=== PATIENT | male | born 1965 | race Two or more races ===

== ENCOUNTER 2023-03-21 16:53 | Inpatient (IN) | payer OTHER ==
[~2023-03-21] VITALS: Ht 172.7 cm; Wt 74.8 kg
[2023-03-21] MEDS ORDERED: COZAAR100 MG PO (17:02)
[2023-03-21] MEDS ORDERED: NORVASC5 MG PO (17:02)
[2023-03-21] MEDS ORDERED: SYNTHROID125 MCG PO (17:02)
[2023-03-21] MEDS ORDERED: ASA81 MG PO (17:02)
[2023-03-21 18:02] LABS: HEMATOCRIT 40.8 % (39.0-48.0); HEMOGLOBIN 13.4 g/dL (13-16.00); MEAN CELL VOLUME 87.6 fL (80.0-100.00); MEAN CORPUSCULAR HEMOGLOBIN 28.8 pg (27.00-32.0); MEAN CORPUSCULAR HGB CONC 32.9 g/dl (32.0-36.0); PLATELET COUNT 231 K/uL (150-450); RED BLOOD COUNT 4.66 M/uL (4.00-6.00); RED CELL DISTRIBUTION WIDTH 14.8 % (11.5-14.5)
[2023-03-21 18:22] LABS: INR 0.98; PARTIAL THROMBOPLASTIN TIME 23.5 SECONDS (22.0-34.0); PROTHROMBIN TIME 10.3 SECONDS (9.0-11.5)
[2023-03-21 18:30] LABS: ALBUMIN 3.3 gm/dL (3.4-5.0); BILIRUBIN TOTAL 0.31 mg/dL (0.3-1.2); CALCIUM 8.9 mg/dL (8.5-10.1); CREATININE SERUM 0.79 mg/dL (0.70-1.30); GFR 100.05; GLOBULINA 3.4 G/DL (2.4-3.5); POTASSIUM 4.26 mEq/L (3.5-5.1); TOTAL PROTEIN 6.7 gm/dL (6.4-8.2)
[2023-03-21 18:35] LABS: C-REACTIVE PROTEIN 0.32 MG/DL (0.00-0.29)
[2023-03-22 00:49] LABS: PH,URINE 7.5 (5.0-8.0); URINE APPEARANCE Clear; URINE BILIRRUBIN Negative (NEGATIVE); URINE BLOOD Moderate; URINE COLOR Yellow; URINE GLUCOSE Negative (NEGATIVE); URINE LEUKOCYTE Negative; URINE NITRATE Negative; URINE PROTEIN Negative (NEGATIVE); URINE UROBILINOGEN 0.2 E.U./dl
[2023-03-22 00:52] LABS: URINE BACTERIA 26.4 uL (0.0-1933); URINE RBC 51.5 uL (0.0-20.8); URINE WBC 10.4 uL (0.0-23.2)
[2023-03-22 00:53] LABS: URINE EPITHELIAL CELLS 0.7 uL (0.0-38.8)
[2023-03-22 16:18] LABS: CALCIUM 8.2 mg/dL (8.5-10.1); CHOL HDL RATIO 3.2 (0-5.0); CREATININE SERUM 0.85 mg/dL (0.70-1.30); GFR 91.94; POTASSIUM 4.16 mEq/L (3.5-5.1)
[2023-03-27 07:02] LABS: HEMATOCRIT 32.7 % (39.0-48.0); HEMOGLOBIN 11.2 g/dL (13-16.00); MEAN CORPUSCULAR HEMOGLOBIN 29.4 pg (27.00-32.0); MEAN CORPUSCULAR HGB CONC 34.2 g/dl (32.0-36.0); PLATELET COUNT 209 K/uL (150-450); RED CELL DISTRIBUTION WIDTH 14.3 % (11.5-14.5)
[2023-03-27 07:29] LABS: INR 1.09; PARTIAL THROMBOPLASTIN TIME 27.8 SECONDS (22.0-34.0); PROTHROMBIN TIME 11.4 SECONDS (9.0-11.5)
[2023-03-27 07:40] LABS: ALBUMIN 2.1 gm/dL (3.4-5.0); BILIRUBIN TOTAL 0.44 mg/dL (0.3-1.2); BILIRUBIN,CONJUGATED 0.16 mg/dL (0.0-0.2); BILIRUBIN,UNCONJUGATED 0.28 mg/dL (0.0-0.6); CALCIUM 7.6 mg/dL (8.5-10.1); CREATININE SERUM 0.68 mg/dL (0.70-1.30); GFR 118.95; MAGNESIUM 1.7 mg/dL (1.8-2.4); POTASSIUM 3.68 mEq/L (3.5-5.1); TOTAL PROTEIN 5.1 gm/dL (6.4-8.2)
[2023-03-27 11:42] LABS: UREA CLEARANCE 15.8 ML/MIN
[2023-03-30 06:48] LABS: HEMOGLOBIN 11.4 g/dL (13-16.00); MEAN CELL VOLUME 83.1 fL (80.0-100.00); MEAN CORPUSCULAR HEMOGLOBIN 28.6 pg (27.00-32.0); MEAN CORPUSCULAR HGB CONC 34.4 g/dl (32.0-36.0); PLATELET COUNT 235 K/uL (150-450); RED BLOOD COUNT 3.98 M/uL (4.00-6.00); RED CELL DISTRIBUTION WIDTH 14.1 % (11.5-14.5)
[2023-03-30 07:18] LABS: ALBUMIN 2.2 gm/dL (3.4-5.0); BILIRUBIN TOTAL 0.38 mg/dL (0.3-1.2); CALCIUM 7.9 mg/dL (8.5-10.1); CREATININE SERUM 0.69 mg/dL (0.70-1.30); GFR 116.96; GLOBULINA 3.1 G/DL (2.4-3.5); MAGNESIUM 1.7 mg/dL (1.8-2.4); PHOSPHOROUS 2.7 mg/dL (2.5-4.9); POTASSIUM 3.6 mEq/L (3.5-5.1); TOTAL PROTEIN 5.3 gm/dL (6.4-8.2)
[2023-03-30] MEDS ORDERED: METRONIDAZOLE500 MG PO (18:17)
[2023-03-30] MEDS ORDERED: AMOX-CLAV 875-1 EAC1 PO (18:17)
== END 2023-03-30 19:14 | disposition home or self-care (01) | DRG 392 ==
LOC: ER 16:53 → SURG 23:59
PROVIDERS: General Practice; ADMIT Internal Medicine; ATTEND Internal Medicine
PROC: BW21ZZZ Computerized Tomography (CT Scan) of Abdomen and Pelvis (ICD-10-PCS; principal; 2023-03-21)
PROC: BW21ZZZ Computerized Tomography (CT Scan) of Abdomen and Pelvis (ICD-10-PCS; 2023-03-27)
DX: K57.92 Diverticulitis of intestine, part unspecified, without perforation or abscess without bleeding (principal); K59.09 Other constipation

== ENCOUNTER 2023-05-29 10:15 | Inpatient (IN) | payer OTHER ==
[~2023-05-29] VITALS: Ht 170.2 cm; Wt 70.8 kg
[~2023-05-29 10:15] MED LIST: AMOX-CLAV 875-1 EAC1 PO; ASA81 MG PO; COZAAR100 MG PO; METRONIDAZOLE500 MG PO; NORVASC5 MG PO; SYNTHROID125 MCG PO
[2023-05-29] MEDS ORDERED: MILLIPRED5 MG PO (13:48)
[2023-06-06] MEDS ORDERED: CEFTRIAXONE SODIUM 2,000 MG VIAL ONE (07:11)
[2023-06-06] MEDS ORDERED: METRONIDAZOLE/SODIUM CHLORIDE 500 MG/100 ML PIGGYBACK IV ONE ×2 (07:11→09:00)
[2023-06-06] MEDS ORDERED: HYDROCORTISONE SODIUM SUCC/PF 100 MG VIAL ONE (07:21)
[2023-06-06] MEDS ORDERED: BUPIVACAINE HCL/PF 0.5% 30ML ML ONE ×2 (07:24→07:25)
[2023-06-06] MEDS ORDERED: LIDOCAINE HCL/EPINEPHRINE 30 ML ML IJ ONE (09:00)
[2023-06-06] MEDS ORDERED: CEFTRIAXONE SODIUM 2,000 MG VIAL IV ONE (09:00)
[2023-06-06] MEDS ORDERED: BUPIVACAINE HCL/PF 0.5% 30ML ML IJ ONE (09:00)
[2023-06-06] MEDS ORDERED: ONDANSETRON HCL 2 MG/ML VIAL IV PRN (10:00)
[2023-06-06] MEDS ORDERED: RINGERS SOLUTION,LACTATED 1,000 ML IV SCH (10:00)
[2023-06-06] MEDS ORDERED: OxyCODONE HCL 5 MG TABLET (ROXICODONE) PO PRN (10:00)
[2023-06-06] MEDS ORDERED: MORPHINE SULFATE 4 MG/ML CARTRIDGE IV PRN (10:00)
[2023-06-06 11:00] LABS: HEMATOCRIT 31.4 % (39.0-48.0); HEMOGLOBIN 10.5 g/dL (13-16.00); MEAN CELL VOLUME 85.4 fL (80.0-100.00); MEAN CORPUSCULAR HEMOGLOBIN 28.6 pg (27.00-32.0); MEAN CORPUSCULAR HGB CONC 33.5 g/dl (32.0-36.0); PLATELET COUNT 169 K/uL (150-450); RED BLOOD COUNT 3.68 M/uL (4.00-6.00); RED CELL DISTRIBUTION WIDTH 15.2 % (11.5-14.5)
[2023-06-06] MEDS ORDERED: ENALAPRILAT DIHYDRATE 1.25 MG/ML VIAL IV PRN (12:30)
[2023-06-06] MEDS ORDERED: HYDROCORTISONE SODIUM SUCC/PF 100 MG VIAL IV STA (12:53)
[2023-06-06] MEDS ORDERED: ACETAMINOPHEN 500 MG GEL..CAP PO SCH (14:00)
[2023-06-06] MEDS ORDERED: ACETAMINOPHEN 500 MG GEL..CAP PO ONE (15:31)
[2023-06-06] MEDS ORDERED: METOCLOPRAMIDE HCL 5 MG/ML VIAL IV SCH (17:00)
[2023-06-06] MEDS ORDERED: HYOSCYAMINE SULFATE 0.125 MG TAB.SUBL SL SCH (17:00)
[2023-06-06] MEDS ORDERED: SIMETHICONE 125 MG CAPSULE PO SCH (17:00)
[2023-06-06] MEDS ORDERED: CELECOXIB 200 MG CAPSULE PO SCH (17:00)
[2023-06-06] MEDS ORDERED: POLYETHYLENE GLYCOL 3350 17 GM BLIST.PACK PO SCH (17:00)
[2023-06-06] MEDS ORDERED: GABAPENTIN 300 MG CAPSULE PO SCH (17:00)
[2023-06-06] MEDS ORDERED: HYDROCORTISONE SODIUM SUCC/PF 100 MG VIAL IV SCH (18:00)
[2023-06-06] MEDS ORDERED: LOSARTAN POTASSIUM 100 MG TABLET PO SCH (21:00)
[2023-06-06] MEDS ORDERED: FAMOTIDINE/PF 20 MG/2 ML VIAL IV PUSH SCH (21:00)
[2023-06-07 05:51] LABS: HEMATOCRIT 37.5 % (39.0-48.0); HEMOGLOBIN 12.6 g/dL (13-16.00); MEAN CELL VOLUME 84.5 fL (80.0-100.00); MEAN CORPUSCULAR HEMOGLOBIN 28.4 pg (27.00-32.0); MEAN CORPUSCULAR HGB CONC 33.6 g/dl (32.0-36.0); PLATELET COUNT 165 K/uL (150-450); RED BLOOD COUNT 4.44 M/uL (4.00-6.00); RED CELL DISTRIBUTION WIDTH 15.3 % (11.5-14.5)
[2023-06-07] MEDS ORDERED: SYNTHROID 125 MCG PO SCH (06:00)
[2023-06-07 06:34] LABS: ALBUMIN 1.9 gm/dL (3.4-5.0); CALCIUM 7.6 mg/dL (8.5-10.1); CREATININE SERUM 0.95 mg/dL (0.70-1.30); GFR 80.87; MAGNESIUM 1.9 mg/dL (1.8-2.4); PHOSPHOROUS 4.4 mg/dL (2.5-4.9); POTASSIUM 4.49 mEq/L (3.5-5.1)
[2023-06-07] MEDS ORDERED: LACTOBACILLUS ACIDOPHILUS 1 CAP CAP PO SCH (09:00)
[2023-06-07] MEDS ORDERED: LACTULOSE 20 G/30 ML BLIST.PACK PO SCH (09:00)
[2023-06-07] MEDS ORDERED: AMLODIPINE BESYLATE 2.5 MG TABLET PO SCH (09:00)
[2023-06-07] MEDS ORDERED: ENOXAPARIN SODIUM 40 MG/0.4 ML SYRINGE SUBCUTANEO SCH (17:00)
[2023-06-07] MEDS ORDERED: HYDROCORTISONE SODIUM SUCC/PF 100 MG VIAL IV SCH (18:00)
[2023-06-08 07:19] LABS: HEMATOCRIT 32.9 % (39.0-48.0); HEMOGLOBIN 11.3 g/dL (13-16.00); MEAN CELL VOLUME 82.7 fL (80.0-100.00); MEAN CORPUSCULAR HEMOGLOBIN 28.3 pg (27.00-32.0); MEAN CORPUSCULAR HGB CONC 34.2 g/dl (32.0-36.0); PLATELET COUNT 189 K/uL (150-450); RED BLOOD COUNT 3.98 M/uL (4.00-6.00); RED CELL DISTRIBUTION WIDTH 15.5 % (11.5-14.5)
[2023-06-08 07:52] LABS: CALCIUM 7.6 mg/dL (8.5-10.1); CREATININE SERUM 1.1 mg/dL (0.70-1.30); GFR 68.28; MAGNESIUM 1.9 mg/dL (1.8-2.4); PHOSPHOROUS 3.5 mg/dL (2.5-4.9); POTASSIUM 4.36 mEq/L (3.5-5.1)
[2023-06-08] MEDS ORDERED: ENOXAPARIN SODIUM 40 MG/0.4 ML SYRINGE SUBCUTANEO SCH (09:00)
[2023-06-08] MEDS ORDERED: HYDROCORTISONE SODIUM SUCC/PF 100 MG VIAL IV SCH (21:00)
== END 2023-06-08 15:41 | disposition home or self-care (01) | DRG 329 ==
LOC: O/R 06-06 05:40 → SURH 06-06 10:15 → SURG 06-06 11:00 → SURH 06-06 11:15 → SURG 06-06 14:47
PROVIDERS: Internal Medicine Geriatric Medicine; ADMIT Colon & Rectal Surgery; ATTEND Colon & Rectal Surgery
PROC: 0DBP4ZZ Excision of Rectum, Percutaneous Endoscopic Approach (ICD-10-PCS; 2023-06-06)
PROC: 0DJD8ZZ Inspection of Lower Intestinal Tract, Via Natural or Artificial Opening Endoscopic (ICD-10-PCS; 2023-06-06)
PROC: 0DTN4ZZ Resection of Sigmoid Colon, Percutaneous Endoscopic Approach (ICD-10-PCS; principal; 2023-06-06 11:15)
DX: K57.20 Diverticulitis of large intestine with perforation and abscess without bleeding (principal); K65.8 Other peritonitis; E03.9 Hypothyroidism, unspecified; I11.9 Hypertensive heart disease without heart failure

== ENCOUNTER 2023-08-04 18:23 | Emergency (ER) | payer OTHER ==
[~2023-08-04] VITALS: Ht 170.2 cm; Wt 74.8 kg
[~2023-08-04 18:23] MED LIST changes: +MILLIPRED5 MG PO
== END 2023-08-04 22:11 | disposition home or self-care (01) ==
LOC: ER 18:24
DX: R60.0 Localized edema (principal); M32.8 Other forms of systemic lupus erythematosus; Z91.012 Allergy to eggs; Z88.8 Allergy status to other drugs, medicaments and biological substances